=== PATIENT | male | born 1995 | race Caucasian/White ===

== ENCOUNTER 2022-03-31 16:11 | Day surgery (SDC) | payer OTHER ==
[~2022-03-31] VITALS: Ht 182.9 cm; Wt 93.7 kg
[2022-03-31] MEDS ORDERED: CHAN0.5P (16:33)
[2022-03-31] MEDS ORDERED: DISU1TAB6 (16:33)
[2022-03-31] MEDS ORDERED: propofoL 200 MG/20 ML VIAL As Ordered ONE ×2 (21:02→21:03)
[2022-03-31] MEDS ORDERED: LIDOCAINE 2% 100MG/5ML SDV (FOR ANES.) As Ordered ONE (21:02)
[2022-03-31] MEDS ORDERED: METOCLOPRAMIDE INJ 10MG/2ML VIAL (J2765 PER 1) As Ordered ONE (21:02)
[2022-03-31] MEDS ORDERED: ONDANSETRON 4MG/2ML VIAL As Ordered ONE (21:02)
[2022-03-31] MEDS ORDERED: dexameTHASONE 4 MG/ML 1ML VIAL (J1100 PER 1MG) As Ordered ONE ×2 (21:02→22:19)
[2022-03-31] MEDS ORDERED: SUCCINYLCHOLINE 100 MG/5 ML SYRINGE (J0330) As Ordered ONE (21:02)
[2022-03-31] MEDS ORDERED: MIDAZOLAM INJ 2MG/2ML VIAL (J2250 PER 1MG) As Ordered ONE (21:03)
[2022-03-31] MEDS ORDERED: fentaNYL 100 MCG/2 ML INJECTION As Ordered ONE (21:03)
[2022-03-31] MEDS ORDERED: DISU1TAB6 PO (21:04)
[2022-03-31] MEDS ORDERED: VARE1TAB2 PO (21:04)
[2022-03-31] MEDS ORDERED: HOME MED LIST COMPLETE! XX SCH (21:05)
[2022-03-31 21:28] LABS: RSV AMPLIFICATION NEGATIVE (NEGATIVE)
[2022-03-31] MEDS ORDERED: PROTPAK PO (22:32)
[2022-03-31] MEDS ORDERED: PROT1TAB2 PO (22:34)
[2022-03-31 22:45] VITALS: BP 120/78
== END 2022-03-31 22:49 | disposition home or self-care (01) ==
LOC: M ED 16:11 → M SDC 21:12
PROVIDERS: ATTEND Surgery
DX: T18.128A Food in esophagus causing other injury, initial encounter (principal); Y92.89 Other specified places as the place of occurrence of the external cause; Z87.891 Personal history of nicotine dependence
CPT/HCPCS: 43235; 87631; 99284; J1100; J2250; J2405; J2765; J3010

== ENCOUNTER 2022-07-02 13:56 | Emergency (ER) | payer OTHER ==
[~2022-07-02] VITALS: Ht 185.4 cm; Wt 97.2 kg
[~2022-07-02 13:56] MED LIST: CHAN0.5P; DISU1TAB6; DISU1TAB6 PO; PROT1TAB2 PO; PROTPAK PO; VARE1TAB2 PO
[2022-07-02] MEDS ORDERED: LIDOCAINE 1% MDV 50ML VIAL SC ONE (14:35)
[2022-07-02] MEDS ORDERED: LIDOCAINE 1% MDV 20ML VIAL As Ordered ONE (14:39)
[2022-07-02] MEDS ORDERED: LIDOCAINE 1% MDV 20ML VIAL SC ONE (14:40)
[2022-07-02] MEDS ORDERED: NEOSPORIN OINT 0.9 GM PKT TOP ONE (15:25)
[2022-07-02] MEDS ORDERED: AMOX875T2 PO (15:43)
[2022-07-02 15:57] VITALS: BP 122/64
== END 2022-07-02 15:59 | disposition home or self-care (01) ==
LOC: M ED 13:56
DX: S51.812A Laceration without foreign body of left forearm, initial encounter (principal); W26.0XXA Contact with knife, initial encounter; Y92.099 Unspecified place in other non-institutional residence as the place of occurrence of the external cause; Y93.G1 Activity, food preparation and clean up; F17.200 Nicotine dependence, unspecified, uncomplicated; Z79.899 Other long term (current) drug therapy

== ENCOUNTER → 2023-06-29 | Outpatient (CLI) | payer BC, OTHER ==
[~2023-06-29] MED LIST changes: +AMOX875T2 PO
[2023-06-29 17:19] LABS: BASO # 0.1 10^3/uL (0.0-0.2); BASO % 1.4 % (0.0-1.0); EOS # 0.1 10^3/uL (0.0-0.5); HEMATOCRIT 47.5 % (42.0-52.0); LYMPH % 30.7 % (24.0-44.0); MEAN CORPUSCULAR HEMOGLOBIN 30.1 pg (27.0-33.0); MEAN CORPUSCULAR HGB CONC 33.7 g/dl (32.0-36.5); MEAN CORPUSCULAR VOLUME 89.5 fl (80.0-96.0); MONO # 0.4 10^3/uL (0.0-0.8); MONO % 6.5 % (2.0-8.0); NEUTROPHILS # 3.9 10^3/uL (1.5-8.5); NEUTROPHILS % 58.6 % (36.0-66.0); PLATELET COUNT, AUTOMATED 236 10^3/uL (150-450); RED BLOOD COUNT 5.31 10^6/uL (4.30-6.10); WHITE BLOOD COUNT 6.7 10^3/uL (4.0-10.0)
[2023-06-29 17:33] LABS: ALBUMIN 4.4 G/DL (3.2-5.2); ALKALINE PHOSPHATASE 73 U/L (46-116); ALT/SGPT 52 U/L (7.0-40); AST/SGOT 20 U/L (<34); BILIRUBIN,TOTAL 0.7 MG/DL (0.3-1.2); BLOOD UREA NITROGEN 19 MG/DL (9-23); CALCIUM LEVEL 8.8 MG/DL (8.5-10.1); CARBON DIOXIDE LEVEL 26 MMOL/L (20-31); CHLORIDE LEVEL 106 MMOL/L (98-107); CHOLESTEROL LEVEL 272 MG/DL (<200); CHOLESTEROL RISK RATIO 5.22 (<5); CREATININE FOR GFR 1.31 MG/DL (0.70-1.30); GLOMERULAR FILTRATION RATE > 60.0 (>60); GLUCOSE, FASTING 86 MG/DL (60-100); HDL CHOLESTEROL 52.1 MG/DL (>40); MAGNESIUM LEVEL 2.2 MG/DL (1.8-2.4); NON-HDL-C 219.9 MG/DL; SODIUM LEVEL 140 MMOL/L (136-145); TOTAL PROTEIN 7.6 G/DL (5.7-8.2); TRIGLYCERIDES LEVEL 441 MG/DL (<150)
[2023-06-29 17:37] LABS: TOTAL 25(OH) VITAMIN D 12.6 NG/ML (20.0-100.0)
== END ==
LOC: M LAB 16:36
PROVIDERS: ATTEND Family Medicine
DX: E55.9 Vitamin D deficiency, unspecified (principal); F11.20 Opioid dependence, uncomplicated; F41.1 Generalized anxiety disorder; F43.21 Adjustment disorder with depressed mood; R53.82 Chronic fatigue, unspecified

== ENCOUNTER 2023-12-31 18:54 | Emergency (ER) | payer BC ==
[~2023-12-31] VITALS: Ht 182.9 cm; Wt 107.3 kg
[~2023-12-31 18:54] MED LIST changes: -DISU1TAB6; -DISU1TAB6 PO; +DISU1TAB7; +DISU1TAB7 PO
[2023-12-31] MEDS ORDERED: IBUP-1022 PO (19:09)
[2023-12-31] MEDS: KETOROLAC 60MG 2ML VIAL IM ONE (20:03)
[2023-12-31] MEDS ORDERED: CYCL-707 PO (20:07)
[2023-12-31] MEDS ORDERED: IBUP80TA PO (20:07)
[2023-12-31 20:18] VITALS: BP 131/85; TEMP 98; O2SAT 97
== END 2023-12-31 20:19 | disposition home or self-care (01) ==
LOC: M ED 18:54
DX: S29.011A Strain of muscle and tendon of front wall of thorax, initial encounter (principal); W19.XXXA Unspecified fall, initial encounter; Y92.009 Unspecified place in unspecified non-institutional (private) residence as the place of occurrence of the external cause; Y93.44 Activity, trampolining; Y99.9 Unspecified external cause status; Z79.1 Long term (current) use of non-steroidal anti-inflammatories (NSAID); Z79.810 Long term (current) use of selective estrogen receptor modulators (SERMs); Z79.899 Other long term (current) drug therapy
CPT/HCPCS: 71101; 96372; 99283; J1885

== ENCOUNTER 2024-05-21 19:13 | Inpatient (IN) | payer BC ==
[~2024-05-21] VITALS: Ht 182.9 cm; Wt 102.9 kg
[~2024-05-21 19:13] MED LIST changes: +CYCL-707 PO; +IBUP-1022 PO; +IBUP80TA PO
[2024-05-21] MEDS: NS 1,000 ML IV ONE (20:05)
[2024-05-21 20:06] LABS: ABG BASE EXCESS -0.1 (-2.0-2.0); ABG HCO3 23.3 MMOL/L (22.0-26.0); ABG O2 SATURATION 98.3 % (95.0-99.0); ABG PARTIAL PRESSURE CO2 34.7 mmHg (35.0-45.0); ABG PARTIAL PRESSURE O2 112.9 mmHg (75.0-100.0); ABG STANDARD HCO3 24.5 MMOL/L. (22.0-26.0); ABG TOTAL CO2 24.4 MMOL/L (22.0-29.0); ABG pH (ARTERIAL) 7.445 UNITS (7.350-7.450)
[2024-05-21 20:14] LABS: BASO # 0.1 10^3/uL (0.0-0.2); BASO % 1.4 % (0.0-1.0); EOS # 0.1 10^3/uL (0.0-0.5); EOS % 0.8 % (0.0-3.0); HEMATOCRIT 45.7 % (42.0-52.0); LYMPH # 2.5 10^3/uL (1.5-5.0); LYMPH % 37.8 % (24.0-44.0); MEAN CORPUSCULAR HEMOGLOBIN 29.8 pg (27.0-33.0); MEAN CORPUSCULAR VOLUME 85.1 fl (80.0-96.0); MONO # 0.4 10^3/uL (0.0-0.8); MONO % 6.5 % (2.0-8.0); NEUTROPHILS # 3.5 10^3/uL (1.5-8.5); NEUTROPHILS % 52.7 % (36.0-66.0); PLATELET COUNT, AUTOMATED 286 10^3/uL (150-450); RED BLOOD COUNT 5.37 10^6/uL (4.30-6.10); WHITE BLOOD COUNT 6.6 10^3/uL (4.0-10.0)
[2024-05-21 20:34] LABS: ALBUMIN 4.5 G/DL (3.2-5.2); ALKALINE PHOSPHATASE 77 U/L (46-116); ALT/SGPT 256 U/L (7.0-40); AST/SGOT 164 U/L (<34); BILIRUBIN,DIRECT 0.2 MG/DL (<0.4); BILIRUBIN,TOTAL 0.6 MG/DL (0.3-1.2); BLOOD UREA NITROGEN 8 MG/DL (9-23); CARBON DIOXIDE LEVEL 26 MMOL/L (20-31); CHLORIDE LEVEL 111 MMOL/L (98-107); CREATININE FOR GFR 1.12 MG/DL (0.70-1.30); GLOMERULAR FILTRATION RATE > 60.0 (>60); GLUCOSE, FASTING 131 MG/DL (60-100); MAGNESIUM LEVEL 2.3 MG/DL (1.8-2.4); POTASSIUM SERUM 3.8 MMOL/L (3.5-5.1); SALICYLATE LEVEL < 3.0 MG/DL (<30); SODIUM LEVEL 147 MMOL/L (136-145); TOTAL PROTEIN 7.6 G/DL (5.7-8.2)
[2024-05-21 20:36] LABS: THYROID STIMULATING HORMONE 1.148 uIU/ML (0.55-4.78)
[2024-05-21 20:53] LABS: CPK CREATINE PHOSPHOKINASE 234 U/L (46-171); ETHYL ALCOHOL (ETHANOL) 0.326 % (0.000-0.010)
[2024-05-21 21:13] LABS: AMPHETAMINES LEVEL URINE NEGATIVE (NEGATIVE); BARBITURATES URINE NEGATIVE (NEGATIVE); BENZODIAZEPINES URINE NEGATIVE (NEGATIVE); COCAINE METABOLITE URINE NEGATIVE (NEGATIVE); METHADONE URINE NEGATIVE (NEGATIVE); OPIATES URINE NEGATIVE (NEGATIVE); PHENCYCLIDINE URINE NEGATIVE (NEGATIVE)
[2024-05-21 21:15] LABS: CANNABINOIDS URINE POSITIVE (NEGATIVE)
[2024-05-21] MEDS ORDERED: ALPR0.5T3 PO (22:29)
[2024-05-21] MEDS ORDERED: HOME MED LIST COMPLETE! XX SCH (22:30)
[2024-05-21] MEDS: NICOTINE 21MG/24HR 1 EA TRANSDERMAL TD ONE (23:09)
[2024-05-21] MEDS: ALPRAZolam 0.5 MG TAB PO ONE (23:28)
[2024-05-22] MEDS: NICOTINE 21MG/24HR 1 EA TRANSDERMAL TD ONE (14:25)
[2024-05-22] MEDS: hydrOXYzine 50 MG TAB PO PRN (15:31)
[2024-05-22] MEDS: PANTOPRAZOLE 40MG TAB (PROTONIX) PO ONE (15:32)
[2024-05-22] MEDS: ALPRAZolam 0.5 MG TAB PO ONE (22:30)
[2024-05-23] MEDS: NICOTINE 21MG/24HR 1 EA TRANSDERMAL TD ONE (12:25)
[2024-05-23] MEDS ORDERED: IBUPROFEN 400MG TAB PO PRN (21:55)
[2024-05-23] MEDS ORDERED: ACETAMINOPHEN TAB 650MG DOSE (2X325MG) PO PRN (21:55)
[2024-05-23] MEDS ORDERED: MOM 30ML SUSPENSION UDC PO PRN (21:55)
[2024-05-23] MEDS ORDERED: MAALOX 30 ML SUSP *UDC PO PRN (21:55)
[2024-05-23] MEDS: diphenhydrAMINE 25MG CAP PO PRN (23:44)
[2024-05-24 00:09] VITALS: BP 150/90; TEMP 97.6; O2SAT 98
[2024-05-24] MEDS: MULTIVITAMINS/MINERALS THERAP 1 TAB PO SCH (09:00)
[2024-05-24] MEDS: FOLIC ACID 1MG TAB PO SCH (09:00)
[2024-05-24] MEDS: NICOTINE 21MG/24HR 1 EA TRANSDERMAL TD SCH (12:45)
[2024-05-24 15:40] VITALS: BP 150/98; TEMP 98.1; O2SAT 98
[2024-05-24] MEDS: THIAMINE 100 MG TAB PO SCH (20:53)
[2024-05-24] MEDS: ALPRAZolam 0.5 MG TAB PO PRN (20:54)
[2024-05-24 22:00] VITALS: BP 168/96
[2024-05-25 06:22] VITALS: BP 159/94; TEMP 96.3; O2SAT 99
[2024-05-25 07:51] LABS: BILIRUBIN,DIRECT 0.2 MG/DL (<0.4); BILIRUBIN,TOTAL 0.8 MG/DL (0.3-1.2); TOTAL PROTEIN 7.2 G/DL (5.7-8.2)
[2024-05-25] MEDS: NICOTINE 14 MG/24 HR TRANSDERMAL TD SCH (10:57)
[2024-05-25 11:15] VITALS: BP 156/97
[2024-05-25] MEDS: LORazepam 2 MG TAB PO PRN (13:17)
[2024-05-25 17:00] VITALS: BP 138/78
[2024-05-25 17:13] VITALS: BP 138/78; TEMP 98.1; O2SAT 99
[2024-05-25 22:30] VITALS: BP 138/96
[2024-05-26 06:19] VITALS: BP 143/84; TEMP 97.3; O2SAT 99
[2024-05-26 09:38] VITALS: BP 152/82
[2024-05-26 17:10] VITALS: BP 160/92; TEMP 97.6; O2SAT 98
[2024-05-26 20:00] VITALS: BP 160/100
[2024-05-27 06:23] VITALS: BP 146/75; TEMP 96.7; O2SAT 98
[2024-05-27 08:00] VITALS: BP 146/75
[2024-05-27 14:00] VITALS: BP 147/88
[2024-05-27 16:47] VITALS: BP 157/88; TEMP 98.1; O2SAT 98
[2024-05-27 20:53] VITALS: BP 157/88; TEMP 98.1; O2SAT 98
[2024-05-27 21:29] VITALS: BP 136/90; TEMP 97.9; O2SAT 99
[2024-05-28 06:36] VITALS: BP 126/72; TEMP 97.5; O2SAT 99
[2024-05-28] MEDS: NICOTINE 7 MG/24 HR TRANSDERMAL TD SCH (08:07)
[2024-05-28 18:56] VITALS: BP 154/92; TEMP 98.5
[2024-05-29 06:28] VITALS: BP 130/76; TEMP 97.4; O2SAT 100
[2024-05-29 17:32] VITALS: BP 147/90; TEMP 99
[2024-05-29] MEDS: traZODone 50 MG TAB PO PRN (21:27)
[2024-05-30 06:31] VITALS: BP 128/74; TEMP 97.8
== END 2024-05-30 13:04 | disposition home or self-care (01) | DRG 754 ==
LOC: M ED 19:13 → M ED INP 05-23 21:51 → M PSY 05-23 22:53
PROVIDERS: ADMIT Student in an Organized Health Care Education/Training Program; ATTEND Psychiatry & Neurology Child & Adolescent Psychiatry
DX: F32.A Depression, unspecified (principal); F41.9 Anxiety disorder, unspecified; F10.10 Alcohol abuse, uncomplicated; F11.91 Opioid use, unspecified, in remission; F17.200 Nicotine dependence, unspecified, uncomplicated; R74.01 Elevation of levels of liver transaminase levels; E87.0 Hyperosmolality and hypernatremia; Z91.51 Personal history of suicidal behavior; Z91.52 Personal history of nonsuicidal self-harm; Z79.899 Other long term (current) drug therapy

== ENCOUNTER → 2024-06-01 | Outpatient (REF) | payer BC ==
[~2024-06-01] MED LIST changes: +ALPR0.5T3 PO
== END ==
LOC: M LABSMT 09:05
PROVIDERS: ATTEND Urology
DX: Z30.2 Encounter for sterilization (principal)

== ENCOUNTER → 2024-07-18 | Outpatient (REF) | payer BC ==
[2024-07-18 09:12] LABS: SEMEN APPEARANCE OPAQUE (OPAQUE); SEMEN VISCOSITY VISCOUS (LIQUID); SEMEN VOLUME 2.7 ml (2.0-5.0); WBC CONCENTRATION <=1 M/ml (<=1 M/ml)
== END ==
LOC: M SMT 08:47
PROVIDERS: ATTEND Urology
DX: Z30.2 Encounter for sterilization (principal)

== ENCOUNTER → 2024-08-23 | Outpatient (REF) | payer BC ==
[2024-08-23 17:09] LABS: CREATININE, URINE 184.7 MG/DL; MALB URINE SIEMENS < 3.0 MG/L; MAU/CREAT RATIO 1.6 MCG/MG (0.0-30.0)
[2024-08-23 19:04] LABS: Trichomonas vaginalis (AMP) NOT DETECTED (NEGATIVE)
[2024-08-23 19:28] LABS: GC DNA AMPLIFICATION NEGATIVE (NEGATIVE)
[2024-08-24 14:46] LABS: ALBUMIN 4.3 G/DL (3.2-5.2); ALKALINE PHOSPHATASE 83 U/L (40-129); ALT/SGPT 57 U/L (7.0-40); AST/SGOT 23 U/L (<34); BILIRUBIN,TOTAL 0.8 MG/DL (0.3-1.2); BLOOD UREA NITROGEN 18 MG/DL (9-23); CARBON DIOXIDE LEVEL 28 MMOL/L (20-31); CHLORIDE LEVEL 106 MMOL/L (98-107); CHOLESTEROL LEVEL 217 MG/DL (<200); CHOLESTEROL RISK RATIO 7.02 (<5); CREATININE FOR GFR 1.31 MG/DL (0.70-1.30); GLOMERULAR FILTRATION RATE > 60.0 (>60); GLUCOSE, FASTING 85 MG/DL (60-100); HDL CHOLESTEROL 30.9 MG/DL (>40); LDL CHOLESTEROL 129.3 MG/DL (<100); NON-HDL-C 186.1 MG/DL; POTASSIUM SERUM 4.2 MMOL/L (3.5-5.1); SODIUM LEVEL 140 MMOL/L (136-145); TOTAL PROTEIN 7.8 G/DL (5.7-8.2); TRIGLYCERIDES LEVEL 284 MG/DL (<150)
[2024-08-24 14:48] LABS: THYROID STIMULATING HORMONE 4.492 uIU/ML (0.55-4.78); TOTAL 25(OH) VITAMIN D 49.3 NG/ML (20.0-100.0)
[2024-08-24 15:37] LABS: HEMOGLOBIN A1c 4.9 % (4.0-6.0)
== END ==
LOC: M LAB REF 16:21
PROVIDERS: ATTEND Physician Assistant
DX: Z11.9 Encounter for screening for infectious and parasitic diseases, unspecified (principal); R03.0 Elevated blood-pressure reading, without diagnosis of hypertension; E55.9 Vitamin D deficiency, unspecified; E66.9 Obesity, unspecified

== ENCOUNTER → 2025-05-18 | Outpatient (REF) | payer BC ==
[2025-05-18 13:14] LABS: ALT/SGPT 69 U/L (7.0-40); AST/SGOT 28 U/L (<34); CALCIUM LEVEL 9.2 MG/DL (8.5-10.1); CARBON DIOXIDE LEVEL 24 MMOL/L (20-31); CHLORIDE LEVEL 107 MMOL/L (98-107); CHOLESTEROL LEVEL 143 MG/DL (<200); CHOLESTEROL RISK RATIO 5.29 (<5); CREATININE FOR GFR 1.05 MG/DL (0.70-1.30); GLOMERULAR FILTRATION RATE > 90.0 (>60); LDL CHOLESTEROL 97.6 MG/DL (<100); NON-HDL-C 116.0 MG/DL; POTASSIUM SERUM 4.2 MMOL/L (3.5-5.1); SODIUM LEVEL 144 MMOL/L (136-145); TRIGLYCERIDES LEVEL 92 MG/DL (<150)
== END ==
LOC: M LAB REF 12:24
PROVIDERS: ATTEND Physician Assistant
DX: E78.2 Mixed hyperlipidemia (principal)

== ENCOUNTER → 2025-06-12 | Outpatient (CLI) | payer BC ==
[~2025-06-12] MED LIST changes: -IBUP-1022 PO; +IBUP600T42 PO
== END ==
LOC: M CARPUL 12:56
PROVIDERS: ATTEND Physician Assistant
DX: R06.02 Shortness of breath (principal)